=== PATIENT | female | born 1970 | race Hispanic/Latino ===

== ENCOUNTER 2025-01-28 21:49 | Emergency (ER) | payer OTHER ==
[~2025-01-28] VITALS: Ht 154.9 cm; Wt 73.5 kg
--- NOTE | 2025-01-28 23:53 | NUR ---
PER PT , CAT IS A STRAY THEY TOOK TO VET, CAT " ESCAPED". STATES THEY CONTACTED [employer] TECH IN ER.
[2025-01-29] MEDS ORDERED: AMOX1TAB16 PO
--- NOTE | 2025-01-29 | ERN ---
ED Note History of Present Illness Stated Complaint: CAT BITE Chief Complaint: Animal Bite Time Seen by MD: 21:58 Time Seen by Midlevel: 21:58 Dictation: The patient is a 54-year-old female with a history of diabetes who presents to the emergency department with complaints of bitten by a cat to her right arm onset yesterday. Patient reports that it was a stray cat which they had picked up and had him today. Patient reports that today the cat was foaming at the mouth and then ran away. Unknown last tetanus Allergies: Coded Allergies: No Known Allergies (Unverified Allergy, Unknown, 01/28/25) Past Medical History Past Medical History: Diabetes-Type II, Hypertension Surgical History: Other Surgical History Other: LEFT OVARY RN Note Reviewed/Agreed w/PFSH: Yes Review of System Dictation Constitutional: Negative for fever,chills, and weight loss Eyes: Negative for injury, pain,redness, and discharge ENT: Negative for injury,pain or swelling Cardiovascular: Negative for chest pain, palpitations, and edema Respiratory: Negative for shortness of breath, cough, and wheezing, Abdomen/GI: Negative for abdominal pain, nausea, vomiting, diarrhea, and constipation Back: Negative for injury and pain : Negative for injury, bleeding and discharge MS/Extremity: Negative for injury and deformity Skin: Negative for rash, and discoloration positive for right hand puncture wound Neuro: Negative for headache, weakness, numbness, tingling, and seizure Psych: Negative for suicide ideation, homicidal ideation, and hallucinations Initial Vital Sign VS Vital Signs Date Time Temp Pulse Resp B/P (MAP) Pulse Ox O2 Delivery O2 Flow Rate FiO2 01/28/25 21:50 98.2 88 18 159/79 99 Room Air Physical Exam Dictation Vital Signs reviewed General Appearance: Alert, oriented x 3, no acute distress, well developed, nourished. Head and Face: non-traumatic. Eyes: PERRL, pink conjunctivas, eyelid no trauma, anterior chamber with arcus senilis. Ears: Pinnas intact and no signs of trauma or erythema ear canals clear and no discharge TM no erythema Nose: No discharge, no bleeding. Oropharynx: Mouth normal, tongue pink. pharynx clear,no erythema, tonsils no exudates, no abscesses noted, mucous membrane moist Neck: Supple, non-tender, no thyromegaly, no masses, no JVD, no bruits Breast:Deferred Chest:No tenderness, no crepitus, no paradoxical movement, no retractions Lungs:Clear, well-ventilated, symmetric, no rales, no wheezing, no rhonchi, no stridor, good breath sounds bilaterally Heart: Regular rate, regular rhythm, no murmur, no gallops Vascular: no peripheral edema, Abdomen: Soft, positive bowel sounds, nondistended, no guarding, nontender, no rebound, no masses no hepatomegaly, no splenomegaly, no Marion's sign, no hernias. Rectal: Deferred Genital: Deferred Neurological: Normal speech, motor function intact, sensory function intact Musculoskeletal: Neck nontender, full range of motion, back nontender, full range of motion, Extremities: nontender, full range of motion Skin: Color pink, dry, no turgor, no rash, no lacerations, no abrasions, no contusions. Two puncture wounds to palm of right hand, no active bleeding, no erythema Lymphatic: Deferred Results (Laboratory/Radiology) Labs Reviewed?: Yes ED Course ED Course Orders Procedure Category Date Status Time Amox/Clav 875/125mg PHA 01/28/25 Complete Tab (Augmentin 875-1 23:00 Tetanus,Diphtheria PHA 01/28/25 Complete Tox [Adult] (Diphther 23:00 Rabies Vacc, Human PHA 01/28/25 Complete Diploid/Pf (Imovax Ra 23:00 Current Medications Medications (Trade) Dose Ordered Sig/Jose Route PRN Reason Start Time Stop Time Status Last Admin Dose Admin Amoxicillin/ Clavulanate Potassium (Augmentin 875-125 Tablet) 1 each ONCE ONCE PO 01/28/25 23:00 01/28/25 23:01 DC Rabies Vaccine Human Diploid Cell (Imovax Rabies Vaccine Vial) 2.5 unit ONCE ONCE IM 01/28/25 23:00 01/28/25 23:01 DC Tetanus/ Diphtheria Toxoids Adsorbed (DiphthERIA-teTANUS TOXOID [ADULT]/ DECAVAC) 0.5 ml ONCE ONCE IM 01/28/25 23:00 01/28/25 23:01 DC Vital Signs Date Time Temp Pulse Resp B/P (MAP) Pulse Ox O2 Delivery O2 Flow Rate FiO2 01/28/25 21:50 98.2 88 18 159/79 99 Room Air Medical Decision Making MDM The patient is a 54-year-old female with a history of diabetes who presents to the emergency department with complaints of bitten by a cat to her right arm onset yesterday. Patient reports that it was a stray cat which they had picked up and had him today. Patient reports that today the cat was foaming at the mouth and then ran away. Unknown last tetanus Patient with two small puncture wounds to right hand, no active bleeding, no erythema. Unable to quarantine CAt due to it had ran away. Patient will received the 1st rabies vaccine here and instructed to follow up for the rest of the vaccines. We will also treat patient with Augmentin and update the tetanus. On physical exam patient is in no acute distress, neurovascularly intact on the right hand. Differential diagnosis: Abrasion, cellulitis, cat bite Need for hospitalization: Patient does not meet criteria for hospitalization. There are no social concerns with this patient. DX & DISP Disposition: Discharge Departure Impression: Primary Impression: Cat bite Condition: Stable Scripts Amoxicillin/Potassium Clav (Amox Tr-K Clv 875-125 mg Tab) 875 Mg-125 Mg Tablet 1 EACH PO BID for 3 Days, #6 TAB 0 Refills Prov: KELLY PALM 01/29/25 Additional Instructions: Please take your medications as prescribed. You will need to follow up with the [facility] and follow up on rabies vaccines. If anything worsens please return to ER. FOLLOW-UP WITH PRIMARY CARE PROVIDER IN 1 TO 2 DAYS. TAKE MEDICATIONS DIRECTED HERE IN THE EMERGENCY ROOM. OKAY TO CONTINUE HOME MEDICATIONS UNLESS OTHERWISE DISCUSSED DURING YOUR VISIT IN THE EMERGENCY ROOM TODAY. RETURN TO YOUR NEAREST EMERGENCY ROOM IF SYMPTOMS WORSEN OR IF THERE IS NO IMPROVEMENT. CALL 911 IF YOU NEED IMMEDIATE ASSISTANCE. TAKE TYLENOL [id number] NEEDED AND IF NO CONTRAINDICATIONS ARE PRESENT. INCREASE ORAL HYDRATION. A WOUND CULTURE OR URINE CULTURE WAS ORDERED HERE IN THE EMERGENCY ROOM DEPARTMENT PLEASE FOLLOW-UP WITH PRIMARY CARE PROVIDER AND ADVISE THEM TO GET REPEAT PORTS FROM OUR FACILITY. IF YOU HAD ANY NAIF WRAP/SPLINTS THAT WERE APPLIED HERE, PLEASE DO NOT REMOVE THEM UNTIL YOU SEE YOUR PRIMARY CARE OR SPECIALTY. Referrals: SELF,REFERRAL (PCP) Time of Disposition: 23:59 I have reviewed the case, and I agree with, Diagnosis and Plan KELLY PALM Jan 29, 2025 00:00
[2025-01-29] MEDS: RABIES VACC, HUMAN DIPLOID/PF 2.5 UNIT VIAL IM ONE (00:34)
[2025-01-29] MEDS: AMOX/CLAV 875/125MG TAB PO ONE (00:36)
[2025-01-29 01:20] VITALS: BP 144/73; PULSE 86; RESP 16; TEMP 98.3; O2SAT 99
== END 2025-01-29 01:24 | disposition home or self-care (01) ==
LOC: EDH 21:49
DX: S41.151A Open bite of right upper arm, initial encounter (principal); E11.9 Type 2 diabetes mellitus without complications; I10 Essential (primary) hypertension; W55.01XA Bitten by cat, initial encounter; Y93.89 Activity, other specified; Y92.89 Other specified places as the place of occurrence of the external cause; Y99.8 Other external cause status
CPT/HCPCS: 90471; 90472; 90675; 90714; 99284